=== PATIENT | female | born 2000 | race Caucasian/White ===

== ENCOUNTER → 2023-07-12 10:08 | Outpatient (BNVA) | payer MEDICAID, SELFPAY | PROVIDERS: Family Provider Pediatrics Adolescent Medicine; PCP Pediatrics Adolescent Medicine; Visit Provider Nurse Practitioner Family | DX: R39.9 Unspecified symptoms and signs involving the genitourinary system (principal); N30.01 Acute cystitis with hematuria; R30.0 Dysuria | CPT/HCPCS: 81000; 87086 ==